=== PATIENT | female | born 1960 | race Two or more races ===

== ENCOUNTER 2022-06-15 20:54 | Emergency (ER) | payer OTHER ==
[~2022-06-15] VITALS: Ht 172.7 cm; Wt 81.6 kg
--- NOTE | 2022-06-15 21:55 | NUR ---
BIBS FOR R ELBOW ABSCESS. FINISHED A DOSE OF CIPRO WITH NO IMPROVEMENT. PATIENT ALERT AND ORIENTED X3. AMBULATORY WITH NON LABORED BREATHING IN BED 05 AWAITING MD OSHEA.
[2022-06-15] MEDS ORDERED: LIDOCAINE 1%-EPI 1:100,000 20 ML VIAL ONE (22:25)
[2022-06-15] MEDS ORDERED: ACETAMINOPHEN 325 MG TABLET ONE (22:29)
[2022-06-15] MEDS ORDERED: ACETAMINOPHEN 325 MG TABLET PO ONE (22:30)
[2022-06-15] MEDS ORDERED: LIDOCAINE 1%-EPI 1:100,000 50 ML VIAL IJ ONE (22:30)
[2022-06-16] MEDS ORDERED: CEPH500C2 PO (00:04)
[2022-06-16] MEDS ORDERED: IBUP-1953 PO (00:04)
--- NOTE | 2022-06-16 00:25 | NUR ---
Patient discharged to home in stable condition. Written and verbal after care instructions given. Patient verbalizes understanding of instruction.
[2022-06-16 00:40] VITALS: BP 128/76
== END 2022-06-16 00:41 | disposition home or self-care (01) ==
LOC: ER 20:58
DX: L02.413 Cutaneous abscess of right upper limb (principal); E11.9 Type 2 diabetes mellitus without complications
CPT/HCPCS: 99283; 10060; J3490 ×2

== ENCOUNTER 2022-06-28 17:08 | Emergency (ER) | payer OTHER ==
[~2022-06-28] VITALS: Ht 170.2 cm; Wt 72.6 kg
[~2022-06-28 17:08] MED LIST: CEPH500C2 PO; IBUP-1953 PO
[2022-06-28 17:22] VITALS: BP 106/69
--- NOTE | 2022-06-28 17:30 | NUR ---
was seen here for rash in right arm- NOT better.
[2022-06-28] MEDS ORDERED: DOXY100C2 PO (18:30)
--- NOTE | 2022-06-28 18:48 | NUR ---
Patient discharged to home in stable condition. Written and verbal after care instructions given. Patient verbalizes understanding of instruction.
== END 2022-06-28 18:45 | disposition home or self-care (01) ==
LOC: ER 17:10
DX: L73.9 Follicular disorder, unspecified (principal); E11.9 Type 2 diabetes mellitus without complications

== ENCOUNTER 2023-08-03 17:28 | Emergency (ER) | payer OTHER ==
[~2023-08-03] VITALS: Ht 170.2 cm; Wt 74.8 kg
[~2023-08-03 17:28] MED LIST changes: +DOXY100C2 PO
[2023-08-03 19:08] LABS: BASOPHILS # (AUTO) 0.1 K/uL (0.0-0.2); BASOPHILS % (AUTO) 0.7 % (0.0-2.0); EOSINOPHILS # (AUTO) 0.2 K/uL (0.0-0.7); EOSINOPHILS % (AUTO) 1.9 % (0.0-6.0); HEMATOCRIT 39 % (33-45); LYMPHOCYTES # (AUTO) 2.4 K/uL (0.8-4.8); LYMPHOCYTES % (AUTO) 28.5 % (20.0-44.0); MEAN CORPUSCULAR HEMOGLOBIN 29 PG (26.0-33.0); MEAN CORPUSCULAR HGB CONC 33 g/dl (31.0-36.0); MEAN CORPUSCULAR VOLUME 86 fL (82-100); MONOCYTES # (AUTO) 0.7 K/uL (0.1-1.30); MONOCYTES % (AUTO) 8.5 % (2.0-12.0); NEUTROPHILS # (AUTO) 5.1 K/uL (1.8-8.9); NEUTROPHILS % (AUTO) 60.4 % (43.0-81.0); PLATELET COUNT (AUTO) 259 K/uL (150-450); RED BLOOD CELL COUNT(AUTO) 4.55 MIL/uL (4.0-5.2); RED CELL DISTRIBUTION WIDTH 13.3 % (11.5-15.0); WHITE BLOOD COUNT (AUTO) 8.5 K/uL (4.3-11.0)
[2023-08-03 19:17] LABS: CALCIUM, SERUM 9.2 mg/dL (8.5-10.1); CARBON DIOXIDE 23 mmol/L (21-32); CHLORIDE 106 mmol/L (98-107); CREATININE 0.7 mg/dL (0.6-1.3); GLUCOSE 122 mg/dL (74-106); POTASSIUM 3.9 mmol/L (3.5-5.1); SODIUM SERUM 140 mmol/L (136-145); UREA NITROGEN, BLOOD 17 mg/dL (7-18)
[2023-08-03 20:04] LABS: THYROID STIMULATING HORMONE 1.212 uIU/mL (0.358-3.74)
[2023-08-03 20:41] VITALS: BP 121/77; TEMP 98.1; O2SAT 100
== END 2023-08-03 20:41 | disposition home or self-care (01) ==
LOC: ER 17:31
DX: S50.311A Abrasion of right elbow, initial encounter (principal); R00.2 Palpitations; I10 Essential (primary) hypertension; W01.0XXA Fall on same level from slipping, tripping and stumbling without subsequent striking against object, initial encounter; Y93.89 Activity, other specified; Y92.89 Other specified places as the place of occurrence of the external cause; Y99.8 Other external cause status
CPT/HCPCS: 36415; 71045-TC; 80048-TC; 83735-TC; 84443-TC; 84484-TC; 85025-TC